=== PATIENT | female | born 1955 | race Caucasian/White ===

== ENCOUNTER 2017-08-17 23:32 | Emergency (ER) | payer OTHER ==
[2017-08-17] MEDS ORDERED: Sodium Chloride 0.9% 10 ML Syringe FLUSH PRN (23:54)
[2017-08-18] MEDS: Sodium Chloride 0.9% 1,000 ML IV ONE (00:18)
[2017-08-18] MEDS: Metoclopramide 10 MG/2 ML SDV IVPUSH ONE (00:22)
[2017-08-18 01:39] VITALS: BP 182/86
[2017-08-18 02:00] LABS: CHLORIDE,CL 93 mmol/L (98-107)
[2017-08-18 02:01] LABS: SODIUM,NA 127 mmol/L (136-145)
--- NOTE | 2017-08-18 02:54 | EDM.PDOC ---
ED HPI GENERAL MEDICAL PROBLEM - General Chief Complaint: ENT Problem Stated Complaint: Difficulty Swallowing Time Seen by Provider: 08/17/17 23:33 Source of Information: Reports: Patient History Limitations: Reports: No Limitations - History of Present Illness INITIAL COMMENTS - FREE TEXT/NARRATIVE: Pt. states that she has a sensation of troubles with swallowing. She states that when she swallows solid food, she has the sensation that it gets stuck and she vomits it up. She is able to get some food down, and is able to get fluids down. because of this sensation, she has not been eating or drinking well. Pt. denies any fever or chills. She denies any hematochezia or hematemesis. Pt. states that she has some discomfort in the area of her lower chest/upper abd. when she swallows. She has not history of known esophageal stricture or other pathology. Onset Date: 08/21/17 Location: Reports: Chest, Abdomen Quality: Reports: Burning, Pressure Improves with: Reports: Rest Worsens with: Reports: Eating Right Knee Pain Score (Numeric/FACES): 4 - Related Data Allergies Allergy/AdvReac Type Severity Reaction Status Date / Time cefdinir Allergy Other Verified 08/17/17 23:34 hydrochlorothiazide Allergy Other Verified 08/17/17 23:34 metronidazole [From Flagyl] Allergy Other Verified 08/17/17 23:34 Home Meds: Home Meds Acetaminophen/HYDROcodone [[place] 325-7.5 MG] 1 - 2 tab PO Q4H PRN 10/12/15 [ History] Aspirin [Halfprin] 81 mg PO BRK 10/12/15 [History] Calcium Carb/Vit D3/Minerals [Calcium 600+D Plus Minerals] 2 tab PO BEDTIME [History] Celecoxib 200 mg PO DAILY 10/12/15 [History] Divalproex Sodium [Depakote ER] 500 mg PO TID 10/12/15 [History] Fluticasone Propionate [Flonase] 50 mcg NASBOTH DAILY 10/12/15 [History] Linaclotide [Linzess] 145 mcg PO DAILY 10/12/15 [History] Losartan Potassium [Cozaar] 100 mg PO DAILY 10/12/15 [History] Meclizine HCl [Antivert] 12.5 mg PO Q4H PRN 10/12/15 [History] Multivitamin [Daily Multiple Vitamin] 1 tab PO DAILY 10/12/15 [History] Omeprazole [Prilosec] 20 mg PO DAILY 10/12/15 [History] Propranolol HCl [Inderal LA] 160 mg PO BEDTIME 10/12/15 [History] Sennosides/Docusate Sodium [Senna-Docusate Sodium] 1 each PO BID 10/12/15 [ History] atorvaSTATin [Lipitor] 10 mg PO BEDTIME 10/12/15 [History] levETIRAcetam [Keppra] 500 mg PO BID 10/12/15 [History] metFORMIN [Glucophage] 500 mg PO BIDMEALS 10/12/15 [History] valACYclovir [Valtrex] 2,000 mg PO DAILY PRN 10/12/15 [History] Past Medical History HEENT History: Reports: Other (See Below) Other HEENT History: diplopia. myopia. presbyopia. chronic maxillary sinusitis Cardiovascular History: Reports: High Cholesterol, Hypertension Gastrointestinal History: Reports: Chronic Constipation Genitourinary History: Reports: Other (See Below) Other Genitourinary History: hematuria Musculoskeletal History: Reports: Arthritis, Other (See Below), Osteoarthritis Other Musculoskeletal History: arthritis of lumbar region. sacroiliac joint dysfunction of both sides. chronic low back pain Neurological History: Reports: Seizure Psychiatric History: Reports: Depression Endocrine/Metabolic History: Reports: Diabetes, Type II - Past Surgical History Female Surgical History: Reports: Section, Lithotripsy/ESWL, Tubal Ligation Musculoskeletal Surgical History: Reports: Knee Replacement, Other (See Below), Shoulder Surgery Social & Family History - Tobacco Use Smoking Status *Q: Never Smoker - Recreational Drug Use Recreational Drug Use: No Drug Use in Last 12 Months: No ED ROS ENT - Review of Systems Review Of Systems: See Below Constitutional: Reports: No Symptoms HEENT: Reports: No Symptoms Respiratory: Reports: No Symptoms Cardiovascular: Reports: No Symptoms Endocrine: Reports: No Symptoms GI/Abdominal: Reports: Abdominal Pain, Decreased Appetite, Difficulty Swallowing : Reports: No Symptoms Musculoskeletal: Reports: No Symptoms Skin: Reports: No Symptoms Neurological: Reports: No Symptoms ED EXAM, ENT - Physical Exam Exam: See Below Exam Limited By: No Limitations General Appearance: Alert, WD/WN, No Apparent Distress Mouth/Throat: Normal Inspection, Normal Gums, Normal Lips, Normal Oropharynx, Normal Teeth Head: Atraumatic, Normocephalic Neck: Normal Inspection, Supple, Non-Tender, Full Range of Motion Respiratory/Chest: No Respiratory Distress, Lungs Clear, Normal Breath Sounds, No Accessory Muscle Use, Chest Non-Tender Cardiovascular: Normal Peripheral Pulses, Regular Rate, Rhythm, No Edema, No Gallop, No JVD, No Murmur, No Rub GI/Abdominal: Normal Bowel Sounds, Soft, Non-Tender, No Organomegaly, No Distention, No Abnormal Bruit, No Mass (Female) Exam: Deferred Rectal (Female) Exam: Deferred Back: Normal Inspection, Full Range of Motion Extremities: Normal Inspection, Normal Range of Motion, Non-Tender, No Pedal Edema, Normal Capillary Refill Neurological: Alert, Oriented, CN II-XII Intact, Normal Cognition, Normal Gait, Normal Reflexes, No Motor/Sensory Deficits Psychiatric: Normal Affect, Normal Mood Skin: Warm, Dry, Intact, Normal Color, No Rash Course - Vital Signs Last Recorded V/S: Last Vital Signs Temp 36.7 C 08/17/17 23:36 Pulse 78 08/17/17 23:36 Resp 16 08/17/17 23:36 BP 182/86 H 08/18/17 00:52 Pulse Ox 99 08/17/17 23:36 - Orders/Labs/Meds Orders: Active Orders 24 hr Category Date Time Status Chest 2V [CR] Stat Exams 08/17/17 23:50 Taken Sodium Chloride 0.9% [Saline Flush] Med 08/17/17 23:54 Active 10 ml FLUSH ASDIRECTED PRN Peripheral IV Insertion Adult [OM.PC] Routine Oth 08/17/17 23:54 Ordered Medication Orders Sodium Chloride (Saline Flush) 10 ml FLUSH ASDIRECTED PRN PRN Reason: Keep Vein Open Labs: Laboratory Tests 08/18/17 08/18/17 08/18/17 Range/Units 01:20 01:20 01:20 WBC 6.6 (4.0-10.0) x10^3/uL RBC 4.13 (4.00-5.50) x10^6/uL Hgb 13.9 D (12.0-16.0) g/dL Hct 40.1 (33.0-47.0) % MCV 97.1 H D (78.0-93.0) fL MCH 33.7 H (26.0-32.0) pg MCHC 34.7 (32.0-36.0) g/dL RDW Coeff of Roxanne 14.4 (10.0-15.0) % Plt Count 137 D (130-400) x10^3/uL Neut % (Auto) 53.6 (50.0-80.0) % Lymph % (Auto) 27.3 (25.0-50.0) % [place] % (Auto) 14.4 H (2.0-11.0) % Eos % (Auto) 4.4 H (0.0-4.0) % Baso % (Auto) 0.3 (0.2-1.2) % Sodium 127 L* D (136-145) mmol/L Potassium 4.1 (3.5-5.1) mmol/L Chloride 93 L (98-107) mmol/L Carbon Dioxide 24 (21-32) mmol/L BUN 13 D (7-18) mg/dL Creatinine 0.8 (0.55-1.02) mg/dL Est Cr Clr Drug Dosing 60.31 mL/min Estimated GFR (MDRD) > 60 Glucose 105 (74-106) mg/dL Calcium 9.0 D (8.5-10.1) mg/dL Corrected Calcium 9.24 D (8.5-10.1) mg/dL Phosphorus 2.7 (2.6-4.7) mg/dL Magnesium 1.3 L (1.8-2.4) mg/dL Total Bilirubin 0.8 (0.2-1.0) mg/dL AST 32 (15-37) U/L ALT 20 (14-59) U/L Alkaline Phosphatase 113 (46-116) U/L C-Reactive Protein 0.9 (<=0.9) mg/dL Total Protein 7.3 (6.4-8.2) g/dL Albumin 3.7 (3.4-5.0) g/dL Globulin 3.6 Albumin/Globulin Ratio 1.03 Meds: Medications Generic Name Dose Route Start Last Admin Trade Name Freq PRN Reason Stop Dose Admin Sodium Chloride 10 ml 08/17/17 23:54 Saline Flush FLUSH ASDIRECTED PRN Keep Vein Open Discontinued Medications Generic Name Dose Route Start Last Admin Trade Name Li PRN Reason Stop Dose Admin Sodium Chloride 1,000 mls @ 1,000 mls/hr 08/17/17 23:54 08/18/17 00:18 Normal Saline IV 08/18/17 00:53 1,000 mls/hr .BOLUS ONE Administration Metoclopramide HCl 10 mg 08/17/17 23:55 08/18/17 00:22 Reglan IVPUSH 08/17/17 23:56 10 mg ONETIME ONE Administration Departure - Departure Time of Disposition: 02:08 Disposition: Home, Self-Care 01 Condition: Good Clinical Impression: Mechanical dysphagia - Discharge Information Instructions: Dysphagia Referrals: Niko Craven MD [Primary Care Provider] - Forms: ED Department Discharge Additional Instructions: Reglan 10mg every 6 hours for nausea/trouble swallowing. The clinic will contact you regarding a GI consult. Return to ER if unable to hold down fluids. - My Orders Last 24 Hours: My Active Orders 08/17/17 23:50 Chest 2V [CR] Stat 08/17/17 23:54 Sodium Chloride 0.9% [Saline Flush] 10 ml FLUSH ASDIRECTED PRN Peripheral IV Insertion Adult [OM.PC] Routine - Assessment/Plan Last 24 Hours: My Active Orders 08/17/17 23:50 Chest 2V [CR] Stat 08/17/17 23:54 Sodium Chloride 0.9% [Saline Flush] 10 ml FLUSH ASDIRECTED PRN Peripheral IV Insertion Adult [OM.PC] Routine
== END 2017-08-18 02:08 | disposition home or self-care (01) ==
LOC: VM.ED 23:32
DX: R13.10 Dysphagia, unspecified (principal); E78.00 Pure hypercholesterolemia, unspecified; I10 Essential (primary) hypertension; E11.9 Type 2 diabetes mellitus without complications; Z88.1 Allergy status to other antibiotic agents; Z88.8 Allergy status to other drugs, medicaments and biological substances; Z79.82 Long term (current) use of aspirin; Z79.899 Other long term (current) drug therapy
CPT/HCPCS: 36415; 71046; 80053; 83735; 84100; 85025; 86140; 96365; 96375; 99284; J2765; J7030

== ENCOUNTER 2019-01-25 08:45 | Day surgery (SDC) | payer OTHER ==
[~2019-01-25 08:45] MED LIST: Lactated Ringers 1,000 ML IV SCH
[2019-01-25] MEDS ORDERED: Lidocaine 4% 5 ML Amp ONE (10:55)
[2019-01-25] MEDS ORDERED: Midazolam 1 MG/ML 2 ML SDV ONE (11:09)
[2019-01-25] MEDS ORDERED: fentaNYL 100 MCG/2 ML SDV ONE (11:09)
[2019-01-25] MEDS ORDERED: Propofol 200 MG/20 ML SDV ONE (11:09)
[2019-01-25 11:27] VITALS: PULSE 67
[2019-01-25 11:43] VITALS: BP 176/77
--- NOTE | 2019-01-25 12:34 | OR ---
PREOPERATIVE DIAGNOSES: Epigastric pain, nausea. POSTOPERATIVE DIAGNOSIS: Significant antritis with superficial ulcerations. PROCEDURE PROPOSED: Upper gastrointestinal panendoscopy with antral biopsies. PROCEDURE DONE: Upper gastrointestinal panendoscopy with antral biopsies. INDICATION: This is a 63-year-old female with some epigastric pain and nausea. She got some relief with Protonix, but she did have some persistent symptoms. She has been off the medication now for about 5 days and feels that things have gotten slightly worse again. She has been evaluated with a CAT scan and ultrasound, which did reveal a gallbladder polyp, which I do not feel was the source of her symptoms. TECHNIQUE: The patient brought to the endoscopy suite, placed in left lateral decubitus position. She was sedated per [employer] with propofol. The intraoral bite- block was put in position. The flexible video gastroscope was then passed transorally and under visualization advanced well into the duodenum. The duodenum and duodenal bulb were unremarkable. The antrum revealed significant antritis with some patches of inflammation and some very superficial ulcerations. A couple of antral biopsies were taken to rule out H. pylori. The body of the stomach looked quite normal and healthy. The GE junction did not reveal any evidence of hiatal hernia. She did not have any GERD, esophageal stenosis, or any other esophageal abnormalities. The scope was then withdrawn. She tolerated procedure well. FINAL IMPRESSION: Significant antritis with superficial ulcerations. PLAN: I will place her back on Protonix 40 mg b.i.d. for 2 weeks and then daily thereafter for a total of 3 months. I also placed her on sucralfate 1 g before meals and at bedtime for a total of 1 month, and she should follow up with her PCP if she has not improved. One should consider HIDA scan if she continues to be symptomatic after this regimen and treatment. Thank you to Niko Craven for the referral of this patient. SCM: 01/25/2019 11:36:46 MODL: 01/25/2019 11:53:19 /[id number]
--- NOTE | 2019-02-08 09:31 | LETTER ---
02/08/2019 RE: AGUSTIN WILCOX : 1955 Dear Agustin: The biopsies taken from your stomach did confirm some inflammation known as gastritis, and most importantly, you do not have the bacteria in your stomach known as H. pylori. Hopefully, you are feeling better. If you have any further questions, feel free to call. Respectfully,
== END 2019-01-25 12:25 | disposition home or self-care (01) ==
LOC: VM.SDS 08:45
PROVIDERS: ATTEND Surgery
DX: K29.60 Other gastritis without bleeding (principal); K25.9 Gastric ulcer, unspecified as acute or chronic, without hemorrhage or perforation; J32.0 Chronic maxillary sinusitis; G40.909 Epilepsy, unspecified, not intractable, without status epilepticus; I10 Essential (primary) hypertension; E11.9 Type 2 diabetes mellitus without complications; D75.1 Secondary polycythemia; K11.1 Hypertrophy of salivary gland; K82.4 Cholesterolosis of gallbladder; E83.52 Hypercalcemia; E78.00 Pure hypercholesterolemia, unspecified; K59.09 Other constipation; F32.9 Major depressive disorder, single episode, unspecified; Z79.899 Other long term (current) drug therapy; Z79.84 Long term (current) use of oral hypoglycemic drugs; Z88.1 Allergy status to other antibiotic agents; Z88.8 Allergy status to other drugs, medicaments and biological substances
CPT/HCPCS: 43239; 82962; J2250; J2704; J3010; J7120

== ENCOUNTER 2019-11-19 15:28 | Emergency (ER) | payer OTHER ==
[2019-11-19] MEDS ORDERED: diphenhydrAMINE 50 MG/ML SDV IVPUSH ONE (15:56)
[2019-11-19] MEDS ORDERED: Ondansetron 4 MG/2 ML SDV IV ONE (15:56)
[2019-11-19] MEDS ORDERED: GI Cocktail Oral Solution 30 ML PO ONE (15:56)
[2019-11-19] MEDS ORDERED: Morphine 4 MG/ML Syringe IVPUSH ONE (15:56)
[2019-11-19] MEDS ORDERED: Sodium Chloride 0.9% 10 ML Syringe FLUSH PRN (15:56)
[2019-11-19] MEDS ORDERED: Lactated Ringers 1,000 ML IV ONE (16:40)
[2019-11-19] MEDS ORDERED: Iopamidol 612 MG/ML 100 ML Bottle IVPUSH ONE (17:01)
[2019-11-19 17:05] LABS: ANION GAP 17.9 mmol/L (10-20); CHLORIDE,CL 100 mmol/L (98-107); SODIUM,NA 139 mmol/L (136-145)
--- NOTE | 2019-11-19 17:07 | EDM.PDOC ---
ED HPI GENERAL MEDICAL PROBLEM - General Chief Complaint: Abdominal Pain Stated Complaint: abd pain Time Seen by Provider: 11/19/19 16:30 Source of Information: Reports: Patient - History of Present Illness INITIAL COMMENTS - FREE TEXT/NARRATIVE: Patient comes emergency department today from the clinic for further evaluation of abdominal pain nausea vomiting and diarrhea. This patient over the past 2 days has had increasing nausea vomiting and diarrhea. She vomited multiple times throughout the night and has had diarrhea multiple times today. She initially developed pain 2 days ago in the epigastric region which was similar to when she was diagnosed with gastritis in the past. Although her pain is worsened and gone throughout her entire abdomen. She can barely touch it. She has been diaphoretic nausea vomiting and diarrhea. No hematuria dysuria or urinary frequency. No chest pain no shortness of breath or difficulty breathing. She has not missed any of her medications chronically. She has had no black or tarry stools. And she has had primarily diarrhea. She has had her gallbladder removed in the past. Abdominal Pain Score (Numeric/FACES): 9 - Related Data Allergies Allergy/AdvReac Type Severity Reaction Status Date / Time cefdinir Allergy Other Verified 11/19/19 16:53 hydrochlorothiazide Allergy Other Verified 11/19/19 16:53 metronidazole [From Flagyl] Allergy Other Verified 11/19/19 16:53 yellow dye Allergy Other Verified 11/19/19 16:53 Home Meds: Home Meds Acetaminophen/HYDROcodone [[place] 325-7.5 MG] 1 - 2 tab PO Q4H PRN 10/12/15 [ History] Aspirin [Halfprin] 81 mg PO BRK 10/12/15 [History] Calcium Carb/Vit D3/Minerals [Calcium 600+D Plus Minerals] 2 tab PO BEDTIME [History] Celecoxib 200 mg PO DAILY 10/12/15 [History] Divalproex Sodium [Depakote ER] 500 mg PO TID 10/12/15 [History] Fluticasone Propionate [Flonase] 50 mcg NASBOTH DAILY 10/12/15 [History] Linaclotide [Linzess] 145 mcg PO DAILY 10/12/15 [History] Losartan Potassium [Cozaar] 100 mg PO DAILY 10/12/15 [History] Meclizine HCl [Antivert] 12.5 mg PO Q4H PRN 10/12/15 [History] Multivitamin [Daily Multiple Vitamin] 1 tab PO DAILY 10/12/15 [History] Propranolol HCl [Inderal LA] 160 mg PO BEDTIME 10/12/15 [History] Sennosides/Docusate Sodium [Senna-Docusate Sodium] 1 each PO BID 10/12/15 [ History] atorvaSTATin [Lipitor] 10 mg PO BEDTIME 10/12/15 [History] levETIRAcetam [Keppra] 500 mg PO BID 10/12/15 [History] metFORMIN [Glucophage] 500 mg PO BIDMEALS 10/12/15 [History] valACYclovir [Valtrex] 2,000 mg PO DAILY PRN 10/12/15 [History] Escitalopram Oxalate [Lexapro] 5 mg PO DAILY 01/22/19 [History] Pantoprazole Sodium [Protonix] 40 mg PO DAILY 01/22/19 [History] Past Medical History HEENT History: Reports: Impaired Vision, Retinal Detachment, Sinusitis, Other ( See Below) Other HEENT History: diplopia. myopia. presbyopia. chronic maxillary sinusitis Cardiovascular History: Reports: High Cholesterol, Hypertension Gastrointestinal History: Reports: Chronic Constipation, Other (See Below) Other Gastrointestinal History: chronic abdominal pain. 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 sacroiliac joint dysfunction of both sides. chronic low back pain. hand edema. spondylolisthesis of lumbaosacral region. Facet arthritis of lumbar region. Chronic Left SI joint pain. Hallux valgus of right foot. Pronation of feet bilateral. acute lymphangitis of thigh Neurological History: Reports: Migraines, Seizure, Other (See Below) Other Neuro History: HX of acute encephalopathy Psychiatric History: Reports: Anxiety, Depression, Other (See Below) Other Psychiatric History: Cognitive changes Endocrine/Metabolic History: Reports: Diabetes, Type II, Obesity/BMI 30+, Other (See Below) Other Endocrine/Metabolic History: Parotid hypertrophy left greater than right swelling. Hypercalcemia Hematologic History: Reports: Polycythemia, Other (See Below) Other Hematologic History: Hypercalcemia Oncologic (Cancer) History: Reports: None - Past Surgical History Musculoskeletal Surgical History: Reports: Knee Replacement, Other (See Below), Shoulder Surgery ED ROS GENERAL - Review of Systems Review Of Systems: Comprehensive ROS is negative, except as noted in HPI. ED EXAM, GI/ABD - Physical Exam Exam: See Below Exam Limited By: No Limitations General Appearance: Alert, WD/WN, No Apparent Distress, Anxious, Moderate Distress Eyes: Bilateral: EOMI Ears: Normal External Exam, Normal TMs Nose: Normal Inspection, Normal Mucosa Throat/Mouth: Normal Inspection, Normal Lips, Normal Oropharynx Head: Atraumatic, Normocephalic Neck: Normal Inspection, Supple, Non-Tender, Full Range of Motion Respiratory/Chest: No Respiratory Distress, Lungs Clear, Normal Breath Sounds, No Accessory Muscle Use, Chest Non-Tender Cardiovascular: Normal Peripheral Pulses, Regular Rate, Rhythm, No Edema GI/Abdominal Exam: Soft, Tender (She has generalized tenderness throughout her abdomen with even the lightest touch on her abdomen. She has guarding throughout her abdomen without any rigidity or rebound. She is not distended. No referred pain to palpation.), Abnormal Bowel Sounds (Very decreased) (Female) Exam: Deferred Rectal (Female) Exam: Deferred Back Exam: Normal Inspection, Full Range of Motion Extremities: Normal Inspection, Normal Range of Motion, Non-Tender, No Pedal Edema, Normal Capillary Refill Neurological: Alert, Oriented, Normal Cognition, Normal Gait, No Motor/Sensory Deficits Psychiatric: Anxious Skin Exam: Warm, Diaphoretic, Pallor EKG INTERPRETATION EKG Date: 11/19/19 Time: 16:06 Rhythm: NSR Rate (Beats/Min): 74 [place]: Normal P-Wave: Present QRS: Normal ST-T: Depressed QT: Prolonged Comparison: NA - No Prior EKG (Reviewing her chart in epic I am unable to see the tracing of the EKG although reading the interpretation it appears that the similar changes of ischemia or depression in the lateral leads are chronic for her. We attempted multiple times to get a hold of [facility] to get a copy of her EKG and they were taking a very long time to get a copy of it.) Course - Vital Signs Last Recorded V/S: Last Vital Signs Temp 35.5 C L 11/19/19 15:26 Pulse 76 11/19/19 17:53 Resp 18 11/19/19 17:53 BP 221/110 H 11/19/19 17:53 Pulse Ox 96 11/19/19 17:53 - Orders/Labs/Meds Orders: Active Orders 24 hr Category Date Time Status EKG Documentation Completion [RC] STAT Care 11/19/19 16:01 Active UA RFX NUPUR AND CULT IF INDIC [URIN] Stat Lab 11/19/19 15:55 Ordered Lactated Ringers [Ringers, Lactated] 1,000 ml Med 11/19/19 17:15 Active IV ASDIRECTED Magnesium Sulfate/Water [Magnesium Sulfate in Water Med 11/19/19 17:12 Active Premix] 2 gm Premix Bag 1 bag IV ONETIME Sodium Chloride 0.9% [Saline Flush] Med 11/19/19 15:56 Active 10 ml FLUSH ASDIRECTED PRN Peripheral IV Insertion Adult [OM.PC] Stat Oth 11/19/19 15:55 Ordered Medication Orders Magnesium Sulfate 2 gm/ Premix 50 mls @ 25 mls/hr IV ONETIME ONE Stop: 11/19/19 19:11 Last Admin: 11/19/19 17:40 Dose: 25 mls/hr Lactated Ringer's (Ringers, Lactated) 1,000 mls @ 500 mls/hr IV ASDIRECTED ALONSO Last Admin: 11/19/19 17:00 Dose: 500 mls/hr Sodium Chloride (Saline Flush) 10 ml FLUSH ASDIRECTED PRN PRN Reason: Keep Vein Open Labs: Laboratory Tests 11/19/19 11/19/19 11/19/19 Range/Units 16:40 16:40 16:40 WBC 12.0 H (4.0-10.0) x10^3/uL RBC 5.55 H (4.00-5.50) x10^6/uL Hgb 17.7 H D (12.0-16.0) g/dL Hct 50.0 H (33.0-47.0) % MCV 90.1 D (78.0-93.0) fL MCH 31.9 (26.0-32.0) pg MCHC 35.4 (32.0-36.0) g/dL RDW Coeff of Roxanne 12.9 (10.0-15.0) % Plt Count 194 (130-400) x10^3/uL Neut % (Auto) 77.5 (50.0-80.0) % Lymph % (Auto) 12.8 L (25.0-50.0) % [place] % (Auto) 8.8 (2.0-11.0) % Eos % (Auto) 0.7 (0.0-4.0) % Baso % (Auto) 0.2 (0.2-1.2) % Sodium 139 (136-145) mmol/L Potassium 3.9 (3.5-5.1) mmol/L Chloride 100 (98-107) mmol/L Carbon Dioxide 25 (21-32) mmol/L Anion Gap 17.9 (10-20) mmol/L BUN 15 (7-18) mg/dL Creatinine 0.7 (0.55-1.02) mg/dL Est Cr Clr Drug Dosing 67.16 mL/min Estimated GFR (MDRD) > 60 Glucose 117 H (74-106) mg/dL Lactic Acid 1.1 (0.4-2.0) mmol/L Calcium 10.0 (8.5-10.1) mg/dL Corrected Calcium 9.44 (8.5-10.1) mg/dL Magnesium 1.6 L (1.8-2.4) mg/dL Total Bilirubin 1.6 H (0.2-1.0) mg/dL AST 238 H (15-37) U/L ALT 442 H (14-59) U/L Alkaline Phosphatase 108 (46-116) U/L Troponin I (<=0.056) ng/mL C-Reactive Protein 0.8 (<=0.9) mg/dL Total Protein 8.2 (6.4-8.2) g/dL Albumin 4.7 (3.4-5.0) g/dL Globulin 3.5 Albumin/Globulin Ratio 1.34 Lipase (73-393) U/L 11/19/19 11/19/19 Range/Units 16:40 16:40 WBC (4.0-10.0) x10^3/uL RBC (4.00-5.50) x10^6/uL Hgb (12.0-16.0) g/dL Hct (33.0-47.0) % MCV (78.0-93.0) fL MCH (26.0-32.0) pg MCHC (32.0-36.0) g/dL RDW Coeff of Roxanne (10.0-15.0) % Plt Count (130-400) x10^3/uL Neut % (Auto) (50.0-80.0) % Lymph % (Auto) (25.0-50.0) % [place] % (Auto) (2.0-11.0) % Eos % (Auto) (0.0-4.0) % Baso % (Auto) (0.2-1.2) % Sodium (136-145) mmol/L Potassium (3.5-5.1) mmol/L Chloride (98-107) mmol/L Carbon Dioxide (21-32) mmol/L Anion Gap (10-20) mmol/L BUN (7-18) mg/dL Creatinine (0.55-1.02) mg/dL Est Cr Clr Drug Dosing mL/min Estimated GFR (MDRD) Glucose (74-106) mg/dL Lactic Acid (0.4-2.0) mmol/L Calcium (8.5-10.1) mg/dL Corrected Calcium (8.5-10.1) mg/dL Magnesium (1.8-2.4) mg/dL Total Bilirubin (0.2-1.0) mg/dL AST (15-37) U/L ALT (14-59) U/L Alkaline Phosphatase (46-116) U/L Troponin I < 0.017 (<=0.056) ng/mL C-Reactive Protein (<=0.9) mg/dL Total Protein (6.4-8.2) g/dL Albumin (3.4-5.0) g/dL Globulin Albumin/Globulin Ratio Lipase 3708 H (73-393) U/L Meds: Medications Generic Name Dose Route Start Last Admin Trade Name Freq PRN Reason Stop Dose Admin Magnesium Sulfate 2 gm/ Premix 50 mls @ 25 mls/hr 11/19/19 17:12 11/19/19 17: 40 IV 11/19/19 19:11 25 mls/hr ONETIME ONE Administration Lactated Ringer's 1,000 mls @ 500 mls/hr 11/19/19 17:15 11/19/19 17:00 Ringers, Lactated IV 500 mls/hr ASDIRECTED ALONSO Administration Sodium Chloride 10 ml 11/19/19 15:56 Saline Flush FLUSH ASDIRECTED PRN Keep Vein Open Discontinued Medications Generic Name Dose Route Start Last Admin Trade Name Li PRN Reason Stop Dose Admin Al Hydroxide/Mg Hydroxide 30 ml 11/19/19 15:56 11/19/19 16:55 Gi Cocktail PO 11/19/19 15:57 30 ml ONETIME ONE Administration Diphenhydramine HCl 25 mg 11/19/19 15:56 11/19/19 16:45 Benadryl IVPUSH 11/19/19 15:57 25 mg ONETIME ONE Administration Hydromorphone HCl 1 mg 11/19/19 18:01 11/19/19 18:11 Dilaudid IVPUSH 11/19/19 18:02 1 mg ONETIME ONE Administration Lactated Ringer's 1,000 mls @ 999 mls/hr 11/19/19 16:40 11/19/19 16:45 Ringers, Lactated IV 11/19/19 17:40 999 mls/hr ONETIME ONE Administration Iopamidol 100 ml 11/19/19 17:01 11/19/19 17:32 Isovue-300 (61%) IVPUSH 11/19/19 17:02 100 ml ONETIME ONE Administration Labetalol HCl 20 mg 11/19/19 18:00 Normodyne IVPUSH 11/19/19 18:01 NOW ONE Protocol Morphine Sulfate 4 mg 11/19/19 15:56 11/19/19 16:51 Morphine IVPUSH 11/19/19 15:57 4 mg ONETIME ONE Administration Ondansetron HCl 4 mg 11/19/19 15:56 11/19/19 16:53 Zofran IV 11/19/19 15:57 Not Given ONETIME ONE - Radiology Interpretation Free Text/Narrative:: CT abdomen and pelvis per radiology with contrast shows nonspecific edema in the upper abdomen extending into the right pericolic gutter. No drainable fluid collection she has quite a bit of edema around the pancreas as well. - Re-Assessments/Exams Free Text/Narrative Re-Assessment/Exam: 11/19/19 18:06 Initially the patient was given a liter of LR wide open. Benadryl 25 milligrams IV push. Morphine 4 mg IV push. Her EKG does have the development of Prolonged QT as well unable to get a copy of the EKG from [facility] most recent last year. They are having problems with their system. Her liver enzymes and T marco are elevated She has been taking quite a bit of tylenol and Ibuprofen recently but she is also on Depakote chronically for seizures. CT abd pelvis with edema around the pancreas as well as the duodenum. Lipase aprox 3700 magnesium sulfate 2 grams IVPB Dilaudid for pain. I will continue her IV fluids LR at 500mls/hr as well with her dehydration and her pancreatitis. The patients blood pressure has maintained quite elevated during her stay here in the ED. It did improve from the 260s to the 220s systolically with pain medication and IV hydration although still quite elevated. I will give a small dose of labetalol as well to help with this HTN at this time. She has not missed any of her home medications for her hypertension she reports. Her pain is much improved as well as her nausea. I am concerned for the possibility of a CBD stone due to the pancreatitis as well as the liver enzymes elevation or other pathology. I called and spoke with Dr. Newsome the hospitalist mailroom personnel at [facility] in [place]. HPI ER COURSE findings and concerns were relayed to the MD over the phone and my concerns for a CBD stone and the possible need for an ERCP. Questions were answered and the patient was accepted in transfer by ambulance to [facility] for further care management and evaluation. Departure - Departure Time of Disposition: 18:02 Disposition: DC/Tfer to Acute Hospital 02 Clinical Impression: Hypomagnesemia, Elevated liver function tests, Dehydration, Prolonged Q-T interval on ECG Diarrhea Qualifiers: Diarrhea type: unspecified type Qualified Code(s): R19.7 - Diarrhea, unspecified Pancreatitis Qualifiers: Chronicity: acute Pancreatitis type: unspecified pancreatitis type Acute pancreatitis complication: unspecified Qualified Code(s): K85.90 - Acute pancreatitis without necrosis or infection, unspecified - Discharge Information Referrals: Niko Craven MD [Primary Care Provider] - Forms: ED Department Discharge Sepsis Event Note - Evaluation Sepsis Screening Result: No Definite Risk - Focused Exam Vital Signs: Vital Signs Temp Pulse Resp BP Pulse Ox 11/19/19 17:53 76 18 221/110 H 96 11/19/19 15:26 35.5 C L 82 18 243/137 H 97 Date Exam was Performed: 11/19/19 Time Exam was Performed: 18:20 - My Orders Last 24 Hours: My Active Orders 11/19/19 15:55 UA RFX NUPUR AND CULT IF INDIC [URIN] Stat Peripheral IV Insertion Adult [OM.PC] Stat 11/19/19 15:56 Sodium Chloride 0.9% [Saline Flush] 10 ml FLUSH ASDIRECTED PRN 11/19/19 16:01 EKG Documentation Completion [RC] STAT 11/19/19 17:12 Magnesium Sulfate/Water [Magnesium Sulfate in Water Premix] 2 gm Premix Bag 1 bag IV ONETIME 11/19/19 17:15 Lactated Ringers [Ringers, Lactated] 1,000 ml IV ASDIRECTED - Assessment/Plan Last 24 Hours: My Active Orders 11/19/19 15:55 UA RFX NUPUR AND CULT IF INDIC [URIN] Stat Peripheral IV Insertion Adult [OM.PC] Stat 11/19/19 15:56 Sodium Chloride 0.9% [Saline Flush] 10 ml FLUSH ASDIRECTED PRN 11/19/19 16:01 EKG Documentation Completion [RC] STAT 11/19/19 17:12 Magnesium Sulfate/Water [Magnesium Sulfate in Water Premix] 2 gm Premix Bag 1 bag IV ONETIME 11/19/19 17:15 Lactated Ringers [Ringers, Lactated] 1,000 ml IV ASDIRECTED Assessment:: Pancreatitis Elevated liver enzymes to include T Marco ? CBD stone. Dehydration hypomagnesemia Prolonged QT segment new findings. diarrhea. Plan: Transfer to [facility] for further care management and work up.
[2019-11-19] MEDS ORDERED: Magnesium Sulfate/Water 2 GM in Premix Bag 1 BAG IV ONE (17:12)
[2019-11-19] MEDS ORDERED: Lactated Ringers 1,000 ML IV SCH (17:15)
--- NOTE | 2019-11-19 17:51 | CT ---
[id number] CT/CT Abdomen Pelvis W IV EXAM: CT Abdomen Pelvis W IV CLINICAL DATA: SEVERE GENERALIZED ABDOMINAL PAIN. COMPARISON STUDY: None. FINDINGS: Edema in the upper mid abdomen. Findings are somewhat centered on the pancreas, however also abut the duodenum extending into the paracolic gutter. No drainable fluid collection. No pneumatosis or pneumoperitoneum. No small bowel obstruction. No definitive evidence of enteritis. No colitis or diverticulitis. Postsurgical change from appendectomy and cholecystectomy. Liver, spleen, and adrenal glands are unremarkable. Right kidney demonstrates parenchymal thinning and superior pole with a cortical defect. No solid or suspicious renal lesions. No evidence of urinary tract obstruction. Uterus has been resected. Adnexal regions are unremarkable. Urinary bladder is unremarkable. Postsurgical change from decompression and fusion of L5-S1. IMPRESSION: Nonspecific edema in the upper abdomen extending into the right paracolic gutter. No drainable fluid collection. Etiology is somewhat nonspecific. Differential diagnosis includes acute pancreatitis, duodenitis, or less likely colitis. Correlate for date of cholecystectomy. In the immediate postoperative setting, bile leak is possible. Other findings are described above. Robbi Mcdermott MD 11/19/19 [id number] Thank you for allowing us to participate in the care of your patient.
[2019-11-19] MEDS ORDERED: Labetalol 20 MG/4 ML Syringe IVPUSH ONE (18:00)
[2019-11-19] MEDS ORDERED: HYDROmorphone 1 MG/ML Syringe IVPUSH ONE (18:01)
[2019-11-19] MEDS ORDERED: hydrALAZINE 20 MG/ML SDV IVPUSH ONE (18:50)
[2019-11-19 19:12] VITALS: BP 173/75; PULSE 81
== END 2019-11-19 19:45 | disposition short-term general hospital (02) ==
LOC: VM.ED 15:28
DX: K85.90 Acute pancreatitis without necrosis or infection, unspecified (principal); E83.42 Hypomagnesemia; E86.0 Dehydration; R94.31 Abnormal electrocardiogram [ECG] [EKG]; R79.89 Other specified abnormal findings of blood chemistry; I10 Essential (primary) hypertension; E78.00 Pure hypercholesterolemia, unspecified; G43.909 Migraine, unspecified, not intractable, without status migrainosus; F41.9 Anxiety disorder, unspecified; F32.9 Major depressive disorder, single episode, unspecified; E66.9 Obesity, unspecified; Z68.31 Body mass index [BMI] 31.0-31.9, adult; Z88.1 Allergy status to other antibiotic agents; Z88.8 Allergy status to other drugs, medicaments and biological substances; Z91.041 Radiographic dye allergy status; Z79.899 Other long term (current) drug therapy
CPT/HCPCS: 36415; 74177; 80053; 81001; 83605; 83690; 83735; 84484; 85025; 86140; 93005; 96365; 96366; 96375; 99285; A9270; J0360; J1170; J1200; J2270; J3475; J3490; J7120; Q9967